=== PATIENT | female | born 1955 | race Caucasian/White ===

== ENCOUNTER 2021-07-28 09:35 | Emergency (ER) | payer MEDICARE ==
--- NOTE | 2021-07-28 10:08 | EDM.PDOC ---
ED HPI GENERAL MEDICAL PROBLEM - General Stated Complaint: Dysuria, weakness Time Seen by Provider: 07/28/21 10:00 Source of Information: Reports: Patient History Limitations: Reports: No Limitations - History of Present Illness INITIAL COMMENTS - FREE TEXT/NARRATIVE: This patient presents to the emergency department for evaluation of perineal pain. She states she has been comfortable "down there" for the past couple of months and has thought she has a bladder infection as it maxwell when she pees. She has not been in to see her primary care provider or get any other health care, she said she just got used to the pain. She came in today for evaluation because she feels weak as well. This is new and was concerning to her. She denies fever, nausea, vomiting, change in appetite. She has not had any recent illnesses including sore throats or coughs. - Related Data Allergies Allergy/AdvReac Type Severity Reaction Status Date / Time Ringer's solution,lactated Allergy Anaphylactic Verified 07/28/21 10:10 [ringers solution,lactated] Shock sulfamethoxazole Allergy Hives Verified 07/28/21 10:10 [From Bactrim] sumatriptan [From Imitrex] Allergy Anaphylactic Verified 07/28/21 10:10 Shock sumatriptan succinate Allergy Anaphylactic Verified 07/28/21 10:10 [From Imitrex] Shock trimethoprim [From Bactrim] Allergy Hives Verified 07/28/21 10:10 Home Meds: Home Meds Lisinopril 5 mg PO DAILY 12/25/14 [History] B6/FA/B12/Co Q10/Herb No.225 [Healthy Heart Complex Tablet] 1 tab PO DAILY 0 05/09/17 [History] Calcium Carbonate/Vitamin D3 [Calcium 500 + Vit D 400] 1 tab PO DAILY 05/09/17 [History] Cholecalciferol (Vitamin D3) [Vitamin D3] 1 cap PO DAILY 05/09/17 [History] L.acidoph,Paracasei, B.lactis [Probiotic] 1 tab PO DAILY 05/09/17 [History] Multivit with Min #53/FA/K/Q10 [Dekas Plus Softgel] 1 tab PO DAILY 05/09/17 [History] Past Medical History Musculoskeletal History: Reports: Back Pain, Chronic ED ROS GENERAL - Review of Systems Review Of Systems: See Below Constitutional: Reports: Weakness. Denies: Fever, Chills, Decreased Appetite HEENT: Reports: No Symptoms Respiratory: Denies: Shortness of Breath, Cough Cardiovascular: Denies: Chest Pain GI/Abdominal: Denies: Abdominal Pain, Decreased Appetite, Nausea, Vomiting : Reports: No Symptoms Musculoskeletal: Reports: No Symptoms Skin: Reports: No Symptoms Neurological: Denies: Confusion, Dizziness, Headache Psychiatric: Reports: No Symptoms ED EXAM, RENAL/ - Physical Exam Exam: See Below Exam Limited By: No Limitations General Appearance: Alert, No Apparent Distress Eye Exam: Bilateral Eye: Normal Inspection, PERRL Ears: Normal External Exam Nose: Normal Inspection Head: Atraumatic, Normocephalic Neck: Normal Inspection, Full Range of Motion Respiratory/Chest: No Respiratory Distress, Lungs Clear, Normal Breath Sounds, No Accessory Muscle Use Cardiovascular: Regular Rate, Rhythm (Female) Exam: Normal External Exam, Other (External genitalia beefy red, no discharge noted). No: Vaginal Discharge Back Exam: Normal Inspection Neurological: Alert, Oriented Course - Orders/Labs/Meds Labs: Laboratory Tests 07/28/21 07/28/21 07/28/21 Range/Units 10:09 11:05 11:05 WBC 7.1 (4.0-11.0) K/uL RBC 4.78 (3.80-5.80) M/uL Hgb 13.5 (11.5-16.5) g/dL Hct 39.9 (37.0-47.0) % MCV 84 (76-96) fL MCH 28.2 (27.0-32.0) pg MCHC 33.8 (31.0-35.0) g/dL RDW 13.6 (11.0-16.0) % Plt Count 323 (150-500) K/uL MPV 7.9 (6.0-10.0) fL Neut % (Auto) 57.6 (45.0-70.0) % Lymph % (Auto) 32.6 (20.0-40.0) % [place] % (Auto) 7.4 (3.0-10.0) % Eos % (Auto) 1.8 (1.0-5.0) % Baso % (Auto) 0.6 H (0.0-0.5) % Neut # (Auto) 4.11 (2.00-7.50) K/uL Lymph # (Auto) 2.33 (1.50-4.00) K/uL [place] # (Auto) 0.53 (0.20-0.80) K/uL Eos # (Auto) 0.13 (0.04-0.40) K/uL Baso # (Auto) 0.04 (0.02-0.10) K/uL Sodium 140 (136-145) mmol/L Potassium 3.6 (3.5-5.1) mmol/L Chloride 106 (98-107) mmol/L Carbon Dioxide 28.0 (21.0-32.0) mmol/L Anion Gap 9.6 (5.0-15.0) mmol/L BUN 12 (8-26) mg/dL Creatinine 0.83 (0.55-1.02) mg/dL Est Cr Clr Drug Dosing TNP Estimated GFR (MDRD) > 60 (>60) MLS/MIN BUN/Creatinine Ratio 14.5 (6-25) Glucose 107 H (74-100) mg/dL Calcium 9.5 (8.5-10.1) mg/dL Urine Color Yellow Urine Appearance Clear (CLEAR) Urine pH 8.5 H (5.0-8.0) Ur Specific [place] 1.015 (1.003-1.030) Urine Protein Negative (NEGATIVE) mg/dL Urine Glucose (UA) Negative (NEGATIVE) mg/dL Urine Ketones Negative (NEGATIVE) mg/dL Urine Occult Blood Trace-intact H (NEGATIVE) Urine Nitrite Negative (NEGATIVE) Urine Bilirubin Negative (NEGATIVE) Urine Urobilinogen 0.2 (0.2-1.0) E.U./dL Ur Leukocyte Esterase Negative (NEGATIVE) Urine RBC 0-5 H /HPF Urine WBC Not seen /HPF Ur Squamous Epith Cells Rare /HPF Departure - Departure Time of Disposition: 11:45 Disposition: [facility] Condition: Good Clinical Impression: Yecenia infection of genital region, Weakness - Discharge Information *PRESCRIPTION DRUG MONITORING PROGRAM REVIEWED*: Not Applicable *COPY OF PRESCRIPTION DRUG MONITORING REPORT IN PATIENT SPENCER: Not Applicable Instructions: Weakness, [id number], Skin Yeast Infection Referrals: PCP,None [Primary Care Provider] -
== END 2021-07-28 11:48 | disposition home or self-care (01) ==
LOC: LB.ED 09:35
DX: B37.9 Candidiasis, unspecified (principal); Z88.2 Allergy status to sulfonamides; Z88.8 Allergy status to other drugs, medicaments and biological substances; Z79.899 Other long term (current) drug therapy
CPT/HCPCS: 36415; 80048; 81001; 85025; 99284

== ENCOUNTER 2021-10-10 10:41 | Emergency (ER) | payer MEDICARE ==
[2021-10-10 11:30] VITALS: PULSE 97
--- NOTE | 2021-10-10 11:53 | EDM.PDOC ---
ED HPI GENERAL MEDICAL PROBLEM - General Chief Complaint: Neuro Symptoms/Deficits Stated Complaint: DIZZINESS/BRAIN FOG Time Seen by Provider: 10/10/21 10:45 Source of Information: Reports: Patient History Limitations: Reports: No Limitations, Altered Mental Status - History of Present Illness INITIAL COMMENTS - FREE TEXT/NARRATIVE: 66-year-old female was brought to the ED by her daughter after she had an abrupt onset of altered mental status/decreased capacity for memory short-term. Patient was last seen normal at approximately 1010 this morning. Prior to that patient had been complaining of being constipated and had treated herself with multiple suppositories. Daughter relates the patient was perseverating at the house, and did not understand certain things that she normally does. Daughter states that patient has never experienced episodes like this. There is no recent trauma or new medications that were started. Pertinent medical history hypertension. Patient denies chest pain, shortness of breath, syncope/near syncope, nausea/vomiting, diarrhea, hematochezia, black tarry stool, changes in urinary frequency, color, volume. Patient has significant family history of stroke. Onset: Today, Sudden Duration: Hour(s): - Related Data Allergies Allergy/AdvReac Type Severity Reaction Status Date / Time Ringer's solution,lactated Allergy Anaphylactic Verified 10/10/21 11:31 [ringers solution,lactated] Shock sulfamethoxazole Allergy Hives Verified 10/10/21 11:31 [From Bactrim] sumatriptan [From Imitrex] Allergy Anaphylactic Verified 10/10/21 11:31 Shock sumatriptan succinate Allergy Anaphylactic Verified 10/10/21 11:31 [From Imitrex] Shock trimethoprim [From Bactrim] Allergy Hives Verified 10/10/21 11:31 Home Meds: Home Meds Lisinopril 5 mg PO DAILY 12/25/14 [History] B6/FA/B12/Co Q10/Herb No.225 [Healthy Heart Complex Tablet] 1 tab PO DAILY 05/09/17 [History] Calcium Carbonate/Vitamin D3 [Calcium 500 + Vit D 400] 1 tab PO DAILY 05/09/17 [History] Cholecalciferol (Vitamin D3) [Vitamin D3] 1 cap PO DAILY 05/09/17 [History] L.acidoph,Paracasei, B.lactis [Probiotic] 1 tab PO DAILY 05/09/17 [History] Multivit with Min #53/FA/K/Q10 [Dekas Plus Softgel] 1 tab PO DAILY 05/09/17 [History] Gabapentin [Neurontin] 300 mg PO BID 10/10/21 [History] busPIRone HCl [busPIRone] 30 mg PO DAILY 10/10/21 [History] Past Medical History Musculoskeletal History: Reports: Back Pain, Chronic Social & Family History - Tobacco Use Tobacco Use Status *Q: Never Tobacco User ED ROS GENERAL - Review of Systems Review Of Systems: Comprehensive ROS is negative, except as noted in HPI. ED EXAM, NEURO - Physical Exam Exam: See Below Text/Narrative:: ABC intact. No apparent distress. No obvious trauma. Speaking in full sentences. Alert and oriented x2/3, GCS 456. Exam Limited By: No Limitations General Appearance: Alert, WD/WN, No Apparent Distress Eye Exam: Bilateral Eye: EOMI, Nystagmus (Negative for), PERRL, Vision Changes (Negative for) Ears: Normal External Exam, Hearing Grossly Normal Nose: Normal Inspection, Normal Mucosa, No Blood Throat/Mouth: Normal Inspection, Normal Lips, Normal Teeth, Normal Gums, Normal Oropharynx, Normal Voice, No Airway Compromise Head Exam: Atraumatic, Normocephalic Neck: Normal Inspection, Supple, Non-Tender, Full Range of Motion. No: Lym phadenopathy (R), Lymphadenopathy (L) Respiratory/Chest: No Respiratory Distress, Lungs Clear, Normal Breath Sounds, No Accessory Muscle Use, Chest Non-Tender Cardiovascular: Normal Peripheral Pulses, Regular Rate, Rhythm, No Edema, No Gallop, No JVD, No Murmur, No Rub GI/Abdominal: Soft, Non-Tender, No Distention, No Mass Neurological: Alert, Normal Mood/Affect, CN II-XII Intact, No Motor/Sensory Deficits, Other (NIH score of 0). No: Tremor Back Exam: Normal Inspection, Full Range of Motion, NT Extremities: Normal Inspection, Normal Range of Motion, Non-Tender, No Pedal Edema, Normal Capillary Refill Psychiatric: Normal Affect, Anxious (Slightly anxious due to the fact she does not know why she is here and how she got here) Skin Exam: Warm, Dry, Intact, Normal Color, No Rash #1 Interpretation EKG Date: 10/10/21 (Normal sinus rhythm without ectopy, no ST elevation or depression, this is not a STEMI) Course - Vital Signs Last Recorded V/S: Last Vital Signs Temp 98.3 F 10/10/21 11:29 Pulse 97 10/10/21 11:29 Resp 16 10/10/21 11:29 BP 188/100 H 10/10/21 11:29 Pulse Ox 98 10/10/21 11:29 - Orders/Labs/Meds Orders: Active Orders 24 hr Category Date Time Status Head wo Cont [CT] Stat Exams 10/10/21 10:55 Taken BASIC METABOLIC PANEL,BMP [CHEM] Stat Lab 10/10/21 11:20 Received CBC WITH AUTO DIFF [HEME] Stat Lab 10/10/21 11:20 Received UA RFX CARRIE AND CULT IF INDIC [URIN] Stat Lab 10/10/21 11:21 Received EKG 12 Lead [EK] Routine Ther 10/10/21 10:56 Ordered Labs: Laboratory Tests 10/10/21 Range/Units 11:44 POC Glucose 100 (74-110) mg/dL - Radiology Interpretation CT Results Date: 10/10/21 (Impression suspected acute right occipital lobe infarct, [place] stroke program early CT score of 10) Departure - Departure Time of Disposition: 01:25 Disposition: DC/Tfer to Acute Hospital 02 Condition: Good Clinical Impression: Occipital infarction, Memory loss, short term - Discharge Information *PRESCRIPTION DRUG MONITORING PROGRAM REVIEWED*: No *COPY OF PRESCRIPTION DRUG MONITORING REPORT IN PATIENT SPENCER: No Referrals: PCP,None [Primary Care Provider] - Care Plan Goals: Transfer to [facility] for neurology. Sepsis Event Note (ED) - Evaluation Sepsis Screening Result: No Definite Risk - Focused Exam Vital Signs: Vital Signs Temp Pulse Resp BP Pulse Ox 10/10/21 11:29 98.3 F 97 16 188/100 H 98 - Problem List & Annotations (1) Memory loss, short term SNOMED Code(s): 917586547 Code(s): R41.3 - OTHER AMNESIA Status: Acute Current Visit: Yes (2) Occipital infarction SNOMED Code(s): 492504626 Code(s): I63.9 - CEREBRAL INFARCTION, UNSPECIFIED Status: Acute Current V isit: Yes - Problem List Review Problem List Initiated/Reviewed/Updated: Yes - My Orders Last 24 Hours: My Active Orders 10/10/21 10:55 Head wo Cont [CT] Stat 10/10/21 10:56 EKG 12 Lead [EK] Routine 10/10/21 11:20 BASIC METABOLIC PANEL,BMP [CHEM] Stat CBC WITH AUTO DIFF [HEME] Stat 10/10/21 11:21 UA RFX CARRIE AND CULT IF INDIC [URIN] Stat - Assessment/Plan Last 24 Hours: My Active Orders 10/10/21 10:55 Head wo Cont [CT] Stat 10/10/21 10:56 EKG 12 Lead [EK] Routine 10/10/21 11:20 BASIC METABOLIC PANEL,BMP [CHEM] Stat CBC WITH AUTO DIFF [HEME] Stat 10/10/21 11:21 UA RFX CARRIE AND CULT IF INDIC [URIN] Stat Assessment:: 66-year-old female presents to the ED complaining of altered mental status and lack of short-term memory. Patient was worked up for possible stroke, CT came back with a reading of a acute occipital lobe infarct. At that time guardian flight was contacted. Consult with Dr. Duran, neurology [facility], based on patient's presentation and history given decided not to treat with TPA. Requested that patient be transferred to their ER to be evaluated for neurology. Then spoke with Dr. Anderson ER physician who accepted the patient. EKGnormal sinus rhythm CBC and BMPwithin normal limits CT headacute occipital infarct Covid test started due to transfer to another facility. Plan: ABC, history, exam, labs, EKG, CT head, consult with [facility] neurology, consult and acceptance by [facility] ED physician Dr. Anderson. Covid test initiated, treatment plan/patient family education, all questions were answered to their satisfaction patient will be discharged from this facility in stable condition for transfer to [facility].
[2021-10-10 12:49] VITALS: BP 162/90
--- NOTE | 2021-10-10 14:54 | CT ---
Date of Service: 10/10/21 Clinical Data: neuro symptoms UNENHANCED BRAIN CT: No priors. No masses or mass effect. No intracranial hemorrhage. No evidence of acute or subacute infarct. No osseous abnormalities. IMPRESSION: No acute intracranial abnormalities. [id number] [facility]
== END 2021-10-10 13:15 ==
LOC: LB.ED 10:41
DX: I63.9 Cerebral infarction, unspecified (principal); Z88.1 Allergy status to other antibiotic agents; Z88.8 Allergy status to other drugs, medicaments and biological substances; Z79.899 Other long term (current) drug therapy; Z20.822 Contact with and (suspected) exposure to COVID-19
CPT/HCPCS: 36415; 70450; 80048; 81001; 82947; 85025; 93005; 99285-25; U0002

== ENCOUNTER 2024-12-18 12:05 | Emergency (ER) | payer MEDICARE ==
[2024-12-18] MEDS: Aspirin 81 MG Tab.Chew PO ONE (12:34)
[2024-12-18] MEDS ORDERED: Sodium Chloride 0.9% 10 ML Syringe FLUSH PRN (12:39)
[2024-12-18 12:47] LABS: BASOPHILS ABSOLUTE AUTO 0.05 K/uL (0.02-0.10); BASOPHILS PERCENT AUTO 0.8 % (0.0-0.5); EOSINOPHILS ABSOLUTE AUTO 0.22 K/uL (0.04-0.40); EOSINOPHILS PERCENT AUTO 3.3 % (1.0-5.0); HEMATOCRIT 41.9 % (37.0-47.0); HEMOGLOBIN 15.7 g/dL (11.5-16.5); LYMPHOCYTES ABSOLUTE AUTO 2.09 K/uL (1.50-4.00); LYMPHOCYTES PERCENT AUTO 31.4 % (20.0-40.0); MEAN CORPUSCULAR HEMOGLOBIN 31.5 pg (27.0-32.0); MEAN CORPUSCULAR HGB CONC 37.5 g/dL (31.0-35.0); MEAN CORPUSCULAR VOLUME 84 fL (76-96); MEAN PLATELET VOLUME 8.3 fL (6.0-10.0); MONOCYTES ABSOLUTE AUTO 0.57 K/uL (0.20-0.80); MONOCYTES PERCENT AUTO 8.6 % (3.0-10.0); NEUTROPHILS ABSOLUTE AUTO 3.73 K/uL (2.00-7.50); NEUTROPHILS PERCENT AUTO 55.9 % (45.0-70.0); PLATELET COUNT,PLT 235 K/uL (150-500); RED BLOOD CELL COUNT 4.99 M/uL (3.80-5.80); RED CELL DISTRIBUTION WIDTH 14.9 % (11.0-16.0); WHITE BLOOD CELL COUNT,WBC 6.7 K/uL (4.0-11.0)
[2024-12-18 13:02] LABS: INR 0.9 (1.0-3.5); PTT,PARTIAL THROMBOPLSTIN TIME 24.3 SECONDS (24.4-33.2)
[2024-12-18 13:03] LABS: PROTHROMBIN TIME 9.9 sec (9.0-11.5)
[2024-12-18 13:07] LABS: ALBUMIN 3.6 g/dL (3.4-5.0); ANION GAP 13.8 mmol/L (5.0-15.0); BILIRUBIN TOTAL 0.5 mg/dL (0.0-1.0); BUN/CREATININE RATIO 8.2 (6-25); CALCIUM 9.1 mg/dL (8.5-10.1); CARBON DIOXIDE,CO2 28.1 mmol/L (21.0-32.0); CREATININE 1.1 mg/dL (0.55-1.02); EST CRCL DRUG DOSING (CG) 34.67 mL/min; MAGNESIUM 2.1 mg/dL (1.8-2.4); POTASSIUM,K 3.9 mmol/L (3.5-5.1); PROTEIN TOTAL,TP 7.2 g/dL (6.4-8.2); TROPONIN I HIGH SENSITIVITY 6.4 pg/ml (<=60.4)
[2024-12-18] MEDS: Isosorbide Mononitrate 30 MG Tab.ER PO ONE (13:54)
[2024-12-18] MEDS: Metoprolol Succinate 25 MG Tab.ER PO ONE (13:54)
[2024-12-18] MEDS ORDERED: Isosorbide Mononitrate 30 MG Tab.ER ONE (16:00)
[2024-12-18] MEDS ORDERED: Metoprolol Tartrate 25 MG Tab ONE (16:00)
[2024-12-18 16:55] VITALS: BP 132/76; PULSE 56
[2024-12-21] MEDS: Isosorbide Mononitrate 30 MG Tab.ER PO ONE (11:54)
== END 2024-12-18 16:04 | disposition home or self-care (01) ==
LOC: LB.ED 12:05
DX: R07.89 Other chest pain (principal); I10 Essential (primary) hypertension; Z87.891 Personal history of nicotine dependence; Z79.899 Other long term (current) drug therapy; Z88.2 Allergy status to sulfonamides; Z88.8 Allergy status to other drugs, medicaments and biological substances
CPT/HCPCS: 36415; 71045; 80053; 83735; 84484; 85025; 85610; 85730; 93005; 99285; A9270-GY